=== PATIENT | female | born 1960 | race Caucasian/White ===

== ENCOUNTER → 2016-12-12 | Outpatient (CLI) | payer BC ==
[~2016-12-12] MED LIST: BIO-TN500 MCG PO; CELEBREX200 MG PO; CENTRUM SILVER1 TA2 PO; LOPRESSOR25 MG PO; METAMUCIL PO; MVI PEDIATRIC1 PDS PO; TAPAZOLE5 MG PO; VICODIN 5/500 505 MG PO; VITAMIN D32000 IU PO; [UNRECOGNIZED DRUG - OTHER] PO
[2016-12-12 08:45] LABS: THYROXINE (T4) TOTAL 12.2 ug/dl (4.8-13.9)
[2016-12-12 08:50] LABS: THYROID STIM HORMONE (HS) 2.23 uIU/ml (0.358-4.75)
== END | disposition home or self-care (01) ==
LOC: LAB 07:57
PROVIDERS: Family Medicine
DX: E05.00 Thyrotoxicosis with diffuse goiter without thyrotoxic crisis or storm (principal)

== ENCOUNTER 2017-04-16 02:31 | Emergency (ER) | payer OTHER ==
[~2017-04-16] VITALS: Ht 170.1 cm; Wt 74.4 kg
[2017-04-16] MEDS ORDERED: Motrin,Rufen800 MG PO (03:18)
== END 2017-04-16 03:34 | disposition home or self-care (01) ==
LOC: ED 02:31
DX: S80.01XA Contusion of right knee, initial encounter (principal); Z79.899 Other long term (current) drug therapy; W18.09XA Striking against other object with subsequent fall, initial encounter; Y93.89 Activity, other specified; Y92.89 Other specified places as the place of occurrence of the external cause; Y99.9 Unspecified external cause status

== ENCOUNTER 2017-05-09 20:28 | Emergency (ER) | payer OTHER ==
[~2017-05-09] VITALS: Ht 170.1 cm; Wt 77.1 kg
[~2017-05-09 20:28] MED LIST changes: +Motrin,Rufen800 MG PO
[2017-05-09] MEDS ORDERED: ANAPROX DS550 MG PO (22:31)
== END 2017-05-09 22:36 | disposition home or self-care (01) ==
LOC: ED 20:28
DX: M23.92 Unspecified internal derangement of left knee (principal); M17.0 Bilateral primary osteoarthritis of knee; Z79.899 Other long term (current) drug therapy; X50.9XXA Other and unspecified overexertion or strenuous movements or postures, initial encounter; Y93.89 Activity, other specified; Y92.89 Other specified places as the place of occurrence of the external cause; Y99.9 Unspecified external cause status

== ENCOUNTER → 2017-05-29 | Outpatient (CLI) | payer OTHER ==
[~2017-05-29] MED LIST changes: +ANAPROX DS550 MG PO
[2017-05-29 11:53] LABS: THYROXINE (T4) TOTAL 12.2 ug/dl (4.8-13.9)
[2017-05-29 11:58] LABS: THYROID STIM HORMONE (HS) 2.17 uIU/ml (0.358-4.75)
== END | disposition home or self-care (01) ==
LOC: LAB 11:06
PROVIDERS: Family Medicine
DX: E05.90 Thyrotoxicosis, unspecified without thyrotoxic crisis or storm (principal)

== ENCOUNTER → 2017-06-19 | Outpatient (CLI) | payer OTHER | END | disposition home or self-care (01) | LOC: MRI 03:01 | DX: S83.207A Unspecified tear of unspecified meniscus, current injury, left knee, initial encounter (principal); M17.12 Unilateral primary osteoarthritis, left knee; X58.XXXA Exposure to other specified factors, initial encounter; Y93.89 Activity, other specified; Y92.89 Other specified places as the place of occurrence of the external cause; Y99.8 Other external cause status ==

== ENCOUNTER 2017-06-22 15:51 | Emergency (ER) | payer OTHER ==
[~2017-06-22] VITALS: Ht 170.1 cm; Wt 77.1 kg
[2017-06-23 07:07] LABS: HIV 1+2 AB + HIV1 P24 AG Non Reactive (Non Reactive)
[2017-06-23 08:13] LABS: HEPATITIS B SURFACE AB 006395 Reactive (.); HEPATITIS C AB <0.1 (0.0-0.9)
== END 2017-06-22 16:38 | disposition home or self-care (01) ==
LOC: ED 15:51
PROVIDERS: Nurse Practitioner Family
DX: S61.031A Puncture wound without foreign body of right thumb without damage to nail, initial encounter (principal); Z79.899 Other long term (current) drug therapy; W46.1XXA Contact with contaminated hypodermic needle, initial encounter; Y93.89 Activity, other specified; Y92.238 Other place in hospital as the place of occurrence of the external cause; Y99.0 Civilian activity done for income or pay

== ENCOUNTER → 2017-10-22 | Outpatient (CLI) | payer OTHER ==
[2017-10-22 08:53] LABS: THYROXINE (T4) TOTAL 11.5 ug/dl (4.8-13.9)
[2017-10-22 08:57] LABS: THYROID STIM HORMONE (HS) 3.47 uIU/ml (0.358-4.75)
== END | disposition home or self-care (01) ==
LOC: LAB 07:45
PROVIDERS: Family Medicine
DX: E05.00 Thyrotoxicosis with diffuse goiter without thyrotoxic crisis or storm (principal)

== ENCOUNTER → 2017-11-20 | Outpatient (CLI) | payer OTHER | END | disposition home or self-care (01) | LOC: MAMMO 10:03 | DX: Z12.31 Encounter for screening mammogram for malignant neoplasm of breast (principal) ==

== ENCOUNTER → 2017-11-22 | Outpatient (CLI) | payer OTHER ==
[2017-11-23 06:10] LABS: HEPATITIS C AB <0.1 (0.0-0.9)
== END | disposition home or self-care (01) ==
LOC: LAB 08:02
PROVIDERS: Internal Medicine
DX: Z77.21 Contact with and (suspected) exposure to potentially hazardous body fluids (principal)

== ENCOUNTER → 2018-08-31 | Outpatient (CLI) | payer OTHER ==
[2018-08-31 09:11] LABS: THYROXINE (T4) TOTAL 10.3 ug/dl (4.8-13.9)
[2018-08-31 09:18] LABS: THYROID STIM HORMONE (HS) 1.78 uIU/ml (0.358-4.75)
== END | disposition home or self-care (01) ==
LOC: LAB 08:06
PROVIDERS: Family Medicine
DX: E05.00 Thyrotoxicosis with diffuse goiter without thyrotoxic crisis or storm (principal)

== ENCOUNTER → 2019-05-31 | Outpatient (CLI) | payer OTHER ==
[~2019-05-31] MED LIST changes: -LOPRESSOR25 MG PO; +TOPROL XL25 MG PO; -VITAMIN D32000 IU PO; +VITAMIN D35000 UNIT PO; +ZALEPLON10 MG PO
[2019-05-31 11:25] LABS: FREE T4 1.12 ng/dl (0.76-1.46)
[2019-05-31 11:30] LABS: THYROID STIM HORMONE (HS) 1.85 uIU/ml (0.358-4.75)
== END | disposition home or self-care (01) ==
LOC: LAB 10:42
PROVIDERS: Family Medicine
DX: E05.90 Thyrotoxicosis, unspecified without thyrotoxic crisis or storm (principal)

== ENCOUNTER → 2020-02-06 | Outpatient (CLI) | payer OTHER ==
[~2020-02-06] MED LIST changes: +ZINC50 M4 PO
== END | disposition home or self-care (01) ==
LOC: COVID19 02:10
DX: Z01.818 Encounter for other preprocedural examination (principal); Z11.59 Encounter for screening for other viral diseases

== ENCOUNTER → 2020-02-12 | Day surgery (SDC) | payer OTHER ==
[~2020-02-12] VITALS: Ht 170.1 cm; Wt 75.7 kg
[~2020-02-12] MED LIST changes: +NORCO 5-325 TA1 EACH PO
[2020-02-12 07:15] VITALS: BP 125/72
[2020-02-12 08:38] VITALS: BP 92/57
[2020-02-12 09:00] VITALS: BP 105/68
[2020-02-12 09:11] VITALS: BP 101/61
== END | disposition home or self-care (01) ==
LOC: SDC 02-09 11:00
DX: D21.3 Benign neoplasm of connective and other soft tissue of thorax (principal); K21.9 Gastro-esophageal reflux disease without esophagitis; Z98.890 Other specified postprocedural states; Z79.899 Other long term (current) drug therapy; Z82.49 Family history of ischemic heart disease and other diseases of the circulatory system

== ENCOUNTER → 2020-05-25 | Outpatient (CLI) | payer OTHER ==
[2020-05-25 10:35] LABS: BUN 18 mg/dl (7-24); CHLORIDE 110 mmol/L (98-107); CHOLESTEROL 184 mg/dL (<200); CREATININE 0.75 mg/dL (0.55-1.02); POTASSIUM 4.4 mmol/L (3.5-5.1); SODIUM 141 mmol/L (136-145); TRIGLYCERIDES 79 mg/dl (<150); VLDL CHOLESTEROL 16 mg/dL (6-40)
[2020-05-25 10:45] LABS: FREE T4 1.12 ng/dl (0.76-1.46); HDL CHOLESTEROL 76 mg/dl (40-60); LDL CHOLESTEROL 92 mg/dL (9-159)
== END | disposition home or self-care (01) ==
LOC: LAB 08:56
PROVIDERS: ATTEND Family Medicine
DX: E05.90 Thyrotoxicosis, unspecified without thyrotoxic crisis or storm (principal)

== ENCOUNTER → 2020-07-23 | Outpatient (CLI) | payer OTHER ==
[2020-07-23 13:18] LABS: BASO % 0.5 % (0.0-1.0); HEMATOCRIT 46.3 % (37.0-47.0); LYMPH # 1.2 10*3/uL (1.3-4.4); LYMPH % 29.9 % (27.0-41.0); MEAN CELL VOLUME 86.4 fl (81.0-99.0); MEAN CORPUSCULAR HGB CONC 32.4 g/dl (33.0-37.0); MEAN PLATELET VOLUME 9.9 fl (9.6-12.3); MONO # 0.5 10*3/uL (0.1-1.0); MONO % 11.7 % (3.0-9.0); NEUT # 2.2 10*3/uL (2.3-7.9); NEUT % 57.6 % (47.0-73.0); PLATELET COUNT AUTOMATED 205 10*3/uL (130-400); RED BLOOD COUNT 5.36 10*6/uL (4.10-5.10); WHITE BLOOD COUNT 3.9 10*3/uL (4.8-10.8)
[2020-07-23 13:47] LABS: ALKALINE PHOSPHATASE 76 U/L (45-117); BUN 19 mg/dl (7-24); CHLORIDE 104 mmol/L (98-107); CREATININE 0.87 mg/dL (0.55-1.02); SGOT/AST 18 IU/L (3-35); SGPT/ALT 22 U/L (12-78); SODIUM 135 mmol/L (136-145); TOTAL PROTEIN 7.2 gm/dL (6.4-8.2)
== END | disposition home or self-care (01) ==
LOC: LAB 12:51
PROVIDERS: ATTEND Family Medicine
DX: O07.1 Delayed or excessive hemorrhage following failed attempted termination of pregnancy (principal)

== ENCOUNTER → 2020-10-21 | Outpatient (CLI) | payer OTHER | END | disposition home or self-care (01) | LOC: MAMMO 01:57 | PROVIDERS: ATTEND Family Medicine | DX: Z12.31 Encounter for screening mammogram for malignant neoplasm of breast (principal) ==

== ENCOUNTER → 2021-06-11 | Outpatient (CLI) | payer OTHER ==
[2021-06-11 09:53] LABS: BUN 20 mg/dl (7-24); CHLORIDE 108 mmol/L (98-107); CHOLESTEROL 183 mg/dL (<200); CREATININE 0.85 mg/dL (0.55-1.02); POTASSIUM 4.1 mmol/L (3.5-5.1); SODIUM 139 mmol/L (136-145); TRIGLYCERIDES 104 mg/dl (<150)
[2021-06-11 10:01] LABS: FREE T4 1.17 ng/dl (0.76-1.46); LDL CHOLESTEROL 91 mg/dL (9-159)
== END | disposition home or self-care (01) ==
LOC: LAB 09:03
PROVIDERS: ATTEND Family Medicine
DX: E05.90 Thyrotoxicosis, unspecified without thyrotoxic crisis or storm (principal)

== ENCOUNTER → 2022-01-05 | Day surgery (SDC) | payer OTHER ==
[~2022-01-05] VITALS: Ht 170.1 cm; Wt 75.7 kg
[~2022-01-05] MED LIST changes: +DOXEPIN HC10 MG/1 ML PO; +ZINC50 M3 PO
[2022-01-05 06:40] VITALS: BP 143/80
[2022-01-05 07:49] VITALS: BP 101/64
[2022-01-05 08:04] VITALS: BP 108/68
[2022-01-05 08:19] VITALS: BP 104/67
== END | disposition home or self-care (01) ==
LOC: SDC 01-02 10:15
PROVIDERS: ATTEND Surgery
DX: Z12.11 Encounter for screening for malignant neoplasm of colon (principal); K57.30 Diverticulosis of large intestine without perforation or abscess without bleeding; D12.2 Benign neoplasm of ascending colon; E03.9 Hypothyroidism, unspecified; Z79.899 Other long term (current) drug therapy

== ENCOUNTER → 2022-08-24 | Outpatient (CLI) | payer OTHER ==
[2022-08-24 10:36] LABS: BUN 18 mg/dl (9-23); CHLORIDE 105 mmol/L (98-107); CHOLESTEROL 176 mg/dL (<200); FREE T4 1.49 ng/dl (0.89-1.76); LDL CHOLESTEROL 89 mg/dL (9-159); POTASSIUM 4.2 mmol/L (3.4-5.1); THYROID STIM HORMONE (HS) 2.185 uIU/ml (0.550-4.780); TRIGLYCERIDES 102 mg/dl (<150)
== END | disposition home or self-care (01) ==
LOC: LAB 09:54
PROVIDERS: ATTEND Family Medicine
DX: Z13.220 Encounter for screening for lipoid disorders (principal); Z13.1 Encounter for screening for diabetes mellitus; E05.90 Thyrotoxicosis, unspecified without thyrotoxic crisis or storm

== ENCOUNTER → 2022-09-05 | Outpatient (CLI) | payer OTHER | END | disposition home or self-care (01) | LOC: MAMMO 01:04 | PROVIDERS: ATTEND Family Medicine | DX: Z12.31 Encounter for screening mammogram for malignant neoplasm of breast (principal) ==

== ENCOUNTER → 2023-11-13 | Outpatient (CLI) | payer OTHER ==
[2023-11-13 09:46] LABS: BUN 14 mg/dl (9-23); CHLORIDE 106 mmol/L (98-107); FREE T4 1.37 ng/dl (0.89-1.76)
== END | disposition home or self-care (01) ==
LOC: LAB 01:49 → MAMMO 01:49
PROVIDERS: ATTEND Family Medicine
DX: Z12.31 Encounter for screening mammogram for malignant neoplasm of breast (principal); Z13.1 Encounter for screening for diabetes mellitus; E05.90 Thyrotoxicosis, unspecified without thyrotoxic crisis or storm

== ENCOUNTER → 2025-02-04 | Outpatient (CLI) | payer MEDICARE, OTHER ==
[2025-02-04 08:45] LABS: BASO # 0.1 10*3/uL (0.0-0.1); BASO % 1.3 % (0.0-1.0); EOS # 0.1 10*3/uL (0.0-0.4); EOS % 1.8 % (1.0-4.0); MEAN CELL VOLUME 87.1 fl (81.0-99.0); MEAN CORPUSCULAR HGB 29.0 pg (27.0-31.0); MEAN PLATELET VOLUME 10.4 fl (9.6-12.3); MONO # 0.5 10*3/uL (0.1-1.0); MONO % 12.3 % (3.0-9.0); NEUT # 1.5 10*3/uL (2.3-7.9); NEUT % 37.3 % (47.0-73.0); NUCLEATED RED BLOOD CELL 0.0 % (0.0-0.0); NUCLEATED RED BLOOD CELL 0.0 10*3/uL (0.0-0.0); PLATELET COUNT AUTOMATED 274 10*3/uL (130-400); RED CELL DISTRI WIDTH 12.4 % (0-14.5)
[2025-02-04 08:55] LABS: ACT PARTIAL THROMBO TIME 27.5 SECONDS (20.0-32.1)
[2025-02-04 08:56] LABS: BILIRUBIN Negative (Negative); BLOOD Negative (Negative); CLARITY Clear (Clear); COLOR Yellow (Yellow); KETONE Trace (Negative); LEUKO ESTERASE 1+ (Negative); NITRITE Negative (Negative); PH 5.0 (4.5-8.0); SPECIFIC GRAVITY 1.020 (1.001-1.030); UROBILINOGEN 0.2 E.U./dl (0.0-1.0)
[2025-02-04 09:18] LABS: BUN 19 mg/dl (9-23); SGPT/ALT 16 U/L (5-49)
[2025-02-04 10:27] LABS: MUCOUS TRACE
== END | disposition home or self-care (01) ==
LOC: LAB 08:03
PROVIDERS: ATTEND Orthopaedic Surgery
DX: Z01.818 Encounter for other preprocedural examination (principal)